=== PATIENT | male | born 1970 | race Two or more races ===

== ENCOUNTER → 2020-02-26 16:28 | Outpatient (CLI) | payer BC, SELFPAY ==
[2020-02-28 12:08] LABS: Covid-19 Nasal PCR Sendout Lex Not Detected
== END ==
PROVIDERS: PCP Physician Assistant; Visit Provider Physician Assistant
DX: Z03.818 Encounter for observation for suspected exposure to other biological agents ruled out (principal)
CPT/HCPCS: U0004

== ENCOUNTER → 2020-03-03 11:10 | Outpatient (CLI) | payer BC, SELFPAY ==
--- NOTE | 2020-03-03 11:16 | XR_ITS ---
PROCEDURE: XR CHEST PORTABLE CLINICAL HISTORY: COVID OUTPATIENT Fever and chills COMPARISON: No exams were available for comparison FINDINGS: The cardiomediastinal silhouette and pulmonary vascularity are within normal limits. There is a calcified right paratracheal lymph node The lungs are clear without infiltrates, suspicious nodules, or pleural effusions. No acute bony abnormalities. IMPRESSION: No acute findings. Dictated by: Kirk Angel MD 03/03/2020 13:07 Kirk Angel MD in [place] 03/03/2020 13:07
[2020-03-03 14:42] LABS: Coronavirus 19 IgG Antibody Negative (Negative); Coronavirus 19 IgM Antibody Negative (Negative)
[2020-03-05 08:39] LABS: Covid-19 Nasal PCR Sendout Lex DETECTED
== END ==
PROVIDERS: PCP Emergency Medicine; Visit Provider Physician Assistant
DX: Z20.828 Contact with and (suspected) exposure to other viral communicable diseases (principal); U07.1 COVID-19
CPT/HCPCS: 36415; 71045; 86328; U0004

== ENCOUNTER → 2020-03-23 11:28 | Outpatient (CLI) | payer BC, SELFPAY ==
[2020-03-24 11:17] LABS: H. pylori Breath Test Negative (Negative)
== END ==
PROVIDERS: Visit Provider Physician Assistant
DX: K21.9 Gastro-esophageal reflux disease without esophagitis (principal)
CPT/HCPCS: 83013

== ENCOUNTER → 2020-05-18 14:36 | Outpatient (CLI) | payer BC, SELFPAY ==
[2020-05-18 16:06] LABS: Alanine Aminotransferase 132 U/L (12-78); Albumin Level 4.9 g/dl (3.5-5.0); Albumin/Globulin Ratio 1.4 (1.1-1.8); Alkaline Phosphatase 44 U/L (38-126); Anion Gap 14.7 mEq/L (5-15); Aspartate Amino Transferase 77 U/L (17-59); Bilirubin,Total 0.7 mg/dl (0.2-1.3); Blood Urea Nitrogen 6 mg/dl (9-20); Calcium 10.1 mg/dl (8.4-10.2); Carbon Dioxide 29 mmol/L (22.0-30.0); Chloride 98 mmol/L (98-107); Chol/HDL Ratio 4.5 (1-3.5); Cholesterol 311 mg/dl (140-200); Estimated Glomerular Filt Rate 102 ml/min (>60); GFR (African American) 123 ML/MIN (>60); Globulin 3.6 g/dL (1.3-3.2); Glucose 99 mg/dl (74-100); HDL Cholesterol 69 mg/dl (40-60); Potassium 4.7 mmoL/L (3.5-5.1); Sodium 137 mmol/L (136-145); Total Protein,Serum 8.5 g/dl (6.3-8.2); Triglycerides 89 mg/dl (30-150); VLDL Cholesterol 18 mg/dL (0-40)
[2020-05-18 16:08] LABS: Basophils # 0.1 K/mm3 (0-0.2); Basophils % 1.1 % (0.1-2.0); Eosinophils # 0.5 K/mm3 (0.0-0.4); Eosinophils % 10.8 % (0.1-12.0); Hematocrit 41.8 % (42.0-52.0); Hemoglobin 14.2 g/dL (14.1-18.0); Lymphocytes # 1.9 K/mm3 (0.7-4.5); Lymphocytes % 37.8 % (10-50); Mean Corpuscular Hemoglobin 29.4 pg (27.0-31.2); Mean Corpuscular Volume 86.4 fl (80-94); Mean Platelet Volume 8.4 fl (7.4-10.4); Monocytes # 0.4 K/mm3 (0.1-1.0); Monocytes % 8.4 % (1.7-9.3); Neutrophils # 2.1 K/mm3 (1.8-7.8); Neutrophils % 41.9 % (37.0-80.0); Platelet Count 277 K/mm3 (142-424); Red Blood Count 4.84 M/mm3 (4.60-6.20); Red Cell Distribution Width 13.4 % (11.5-17.5)
[2020-05-18 16:17] LABS: Direct LDL Cholesterol 218.41 mg/dL (100-129)
[2020-05-18 16:22] LABS: Free T4 (Free Thyroxine) 1.29 ng/dl (0.78-2.19)
[2020-05-18 16:23] LABS: 25-OH Vitamin D, Total 27.4 ng/mL (30-100)
[2020-05-18 16:36] LABS: Prostate Specific Ag Screen 0.7 ng/ml (0.0-4.0)
[2020-05-20 11:16] LABS: Hep A Ab, IgM Negative (Negative); Hepatitis B Core Antibody IgM Negative (Negative); Hepatitis B Surface Antigen Negative (Negative)
[2020-05-20 14:58] LABS: Hepatitis C Antibody <0.1 s/co ratio (0.0-0.9); Testosterone,Total 318 ng/dL (264-916)
== END ==
PROVIDERS: Visit Provider Physician Assistant
DX: E29.1 Testicular hypofunction (principal); E55.9 Vitamin D deficiency, unspecified; E78.5 Hyperlipidemia, unspecified; M19.90 Unspecified osteoarthritis, unspecified site; R74.8 Abnormal levels of other serum enzymes; R89.9 Unspecified abnormal finding in specimens from other organs, systems and tissues
CPT/HCPCS: 80053; 80061; 80074; 82306; 84403; 84439; 84443; 85025; G0103

== ENCOUNTER → 2020-12-15 18:14 | Outpatient (CLI) | payer BC, SELFPAY ==
[2020-12-15 19:07] LABS: Basophils # 0.1 K/mm3 (0-0.2); Basophils % 1.1 % (0.1-2.0); Eosinophils # 0.5 K/mm3 (0.0-0.4); Eosinophils % 7.2 % (0.1-12.0); Hemoglobin 14.5 g/dL (14.1-18.0); Lymphocytes # 2.5 K/mm3 (0.7-4.5); Lymphocytes % 34.5 % (10-50); Mean Corpuscular HGB Conc 33.6 g/dL (31.8-35.4); Mean Corpuscular Hemoglobin 29.5 pg (27.0-31.2); Mean Corpuscular Volume 87.7 fl (80-94); Mean Platelet Volume 9.2 fl (7.4-10.4); Monocytes # 0.5 K/mm3 (0.1-1.0); Monocytes % 6.9 % (1.7-9.3); Neutrophils # 3.6 K/mm3 (1.8-7.8); Neutrophils % 50.3 % (37.0-80.0); Platelet Count 270 K/mm3 (142-424); Red Cell Distribution Width 13.6 % (11.5-17.5); White Blood Count 7.1 K/mm3 (4.8-10.8)
[2020-12-15 19:11] LABS: Alanine Aminotransferase 125 U/L (12-78); Albumin Level 4.7 g/dl (3.5-5.0); Albumin/Globulin Ratio 1.4 (1.1-1.8); Alkaline Phosphatase 45 U/L (38-126); Anion Gap 16.2 mEq/L (5-15); Aspartate Amino Transferase 75 U/L (17-59); Bilirubin,Total 0.8 mg/dl (0.2-1.3); Blood Urea Nitrogen 12 mg/dl (9-20); Calcium 9.8 mg/dl (8.4-10.2); Carbon Dioxide 25 mmol/L (22.0-30.0); Chloride 98 mmol/L (98-107); Estimated Glomerular Filt Rate 118 ml/min (>60); GFR (African American) 143 ML/MIN (>60); Globulin 3.3 g/dL (1.3-3.2); Glucose 96 mg/dl (74-100); HDL Cholesterol 68 mg/dl (40-60); Potassium 4.2 mmoL/L (3.5-5.1); Sodium 135 mmol/L (136-145); Triglycerides 129 mg/dl (30-150); VLDL Cholesterol 26 mg/dL (0-40)
[2020-12-15 19:23] LABS: Direct LDL Cholesterol 241.04 mg/dL (100-129)
[2020-12-15 19:28] LABS: Chol/HDL Ratio 5.3 (1-3.5); Cholesterol 357 mg/dl (140-200)
[2020-12-15 19:29] LABS: 25-OH Vitamin D, Total 42.5 ng/mL (30-100)
[2020-12-15 19:42] LABS: Thyroid Stimulating Hormone 1.23 uIU/mL (0.465-4.68)
== END ==
PROVIDERS: Visit Provider Physician Assistant
DX: I10 Essential (primary) hypertension (principal); E66.3 Overweight; Z68.30 Body mass index [BMI] 30.0-30.9, adult; Z87.891 Personal history of nicotine dependence
CPT/HCPCS: 80053; 80061; 82306; 84443; 85025

== ENCOUNTER → 2021-05-18 15:55 | Outpatient (CLI) | payer BC, SELFPAY | PROVIDERS: Visit Provider Internal Medicine Gastroenterology | DX: Z01.812 Encounter for preprocedural laboratory examination (principal); Z11.52 Encounter for screening for COVID-19; R10.13 Epigastric pain | CPT/HCPCS: C9803; U0003; U0005 ==

== ENCOUNTER 2021-05-20 08:45 | Day surgery (SDC) | payer BC, SELFPAY ==
[2021-05-17 12:38] VITALS: BMI 30.6
[2021-05-20] VITALS (7 sets, daily range): BP systolic 120–136; BP diastolic 80–91; PULSE 65–83; RESP 16–18; TEMP 36.3–36.8; O2SAT 95–99
--- NOTE | 2021-05-20 09:36 | P.PN_ITS ---
[facility] Anesthesia Checklist - Patient Identification Patient Identification: Arm Band - Structural Data Admitted From: Home Planned Operative Procedure/s: egd Consent for Planned Operative Procedure(s) Verified: Yes Verified Documents: Surgical Consent, History and Physical - NPO Status Verified Time NPO: 00:00 - Additional verifications Anesthesia Reactions: No - Airway Assessment C-Spine Mobility Assessed: Yes (mp2) TMJ Mobility Assessed: Yes Dentition: Good Dentition - Neurological Assessment Level of Consciousness: Awake, Alert - Anesthesia Plan Anesthesia Risk discussed: Yes Anesthesia Plan: Verified ASA Class: II Anesthesia Type: MAC [facility] History I have reviewed the patient's past medical history: Yes Medical History: Reports:: Hyperlipidemia, Hypertension Denies:: Cancer, Diabetes Mellitus Type 1, Diabetes Mellitus Type 2, Internal Pacemaker, MRSA, Seizures *Have you ever received a pneumonia vaccine?: No *Have you received a flu vaccine this season?: No Anesthesia experience/problems:: nac Laterality Cases: Right: Arthroscopy Knee Other Surgeries: No: Pacemaker Amputation: No - *Social History Last grade of school completed: High school graduate Smoking Status: Former smoker Tobacco Type: e-cigarettes Alcohol Intake: never Alcohol Intake Frequency:: 3 or more drinks per day Substance Use Type: denies use *Occupational Status:: employed Housing: house Household Members: spouse *Travel in the last 8 weeks: None Family Hx:: Diabetes, Heart Attack
--- NOTE | 2021-05-20 09:50 | HMH.SCOPE ---
- Procedure: Date: 05/20/21 Patient Date of :: 1970 Procedure Performed:: EGD & biopsies Indications:: Dyspepsia, bloating Performing Provider:: Umesh Edwards MD Referring Provider:: Lachelle DUGAN Sedation:: Propofol Procedure:: The gastroscope was gently passed through the incisoral orifice into the oral cavity and under direct visualization the esophagus was intubated. The endoscope was passed down the esophagus, through the stomach, and into the duodenum. Color, texture, mucosa, and anatomy of the esophagus, stomach, and duodenum were carefully examined with the scope. Findings:: Oropharynx: normal Esophagus: normal EG Junction: intact at 40 cm, no evidence of hiatus hernia Cardia: normal Fundus: normal Body: normal, random biopsies obtained for evaluation of h.pylori Antrum: normal Duodenal bulb: normal Duodenum (second and third portion): normal Impression: Overall normal EGD No evidence of ulcer disease or hiatus hernia noted. Specimens:: Gastric samples Recommendations:: Symptomatic therapy directed at IBS suggested Complications:: None Estimated blood obtained (mL): 0
== END 2021-05-20 10:45 | disposition home or self-care (01) ==
LOC: OUTP 08:47
PROVIDERS: PCP Physician Assistant; Visit Provider Internal Medicine Gastroenterology
PROC: 0DJ08ZZ Inspection of Upper Intestinal Tract, Via Natural or Artificial Opening Endoscopic (ICD-10-PCS; CPT 43235; principal; 2021-05-20 09:00)
DX: R10.13 Epigastric pain (principal); R14.0 Abdominal distension (gaseous); E78.5 Hyperlipidemia, unspecified; I10 Essential (primary) hypertension; Z87.891 Personal history of nicotine dependence; Z83.3 Family history of diabetes mellitus; Z82.3 Family history of stroke
CPT/HCPCS: 43239

== ENCOUNTER → 2021-06-03 07:32 | Outpatient (CLI) | payer BC, SELFPAY ==
--- NOTE | 2021-06-03 07:32 | US_ITS ---
FINAL REPORT CLINICAL HISTORY: nausea, epigastric pain FINDINGS: Sonographic images of the right upper quadrant were obtained. The pancreas is partially obscured but appears normal. The liver is increased echogenicity consistent with fatty infiltration. The gallbladder contains a small amount of sludge without evidence of gallstones.There is no evidence of biliary ductal dilatation.The common duct measures 3 mm. Limited images of the right kidney are unremarkable. IMPRESSION: Small amount of sludge within the gallbladder without evidence of gallstones. Fatty infiltrated liver. Reviewed, Interpreted and Dictated by Javier Jacksno III, MD Transcribed by Angeline Kirk Authenticated by Javier Jackson III, MD on 06/03/2021 09:18:41 AM [facility]
== END ==
PROVIDERS: PCP Physician Assistant; Visit Provider Physician Assistant
DX: R10.13 Epigastric pain (principal); R11.0 Nausea
CPT/HCPCS: 76705

== ENCOUNTER → 2021-06-16 07:37 | Outpatient (CLI) | payer BC, SELFPAY ==
--- NOTE | 2021-06-16 07:37 | CT_ITS ---
FINAL REPORT TECHNIQUE: Axial CT images of the abdomen were obtained without contrast. Coronal reformatted images were also obtained.This study was performed with techniques to keep radiation doses as low as reasonably achievable (ALARA). Individualized dose reduction techniques using automated exposure control or adjustment of mA and/or kV according to the patient''s size were employed. CLINICAL HISTORY: nausea, epigastric pain, bloating for 2 years FINDINGS: The lung bases are clear. There is fatty infiltration of the liver without evidence of a mass. The gallbladder appears normal without evidence of gallstones. There is no evidence of biliary ductal dilatation. The pancreas appears normal. The spleen size is within normal limits. There is a less than 3 mm nonobstructing right renal stone. There is no evidence of adenopathy. No abnormal fluid collection is seen. No localized inflammatory processes identified. IMPRESSION: Fatty infiltration of the liver. Less than 3 mm nonobstructing right renal stone. Reviewed, Interpreted and Dictated by Javier Jackson III, MD Transcribed by Angeline Kirk Authenticated by Javier Jackson III, MD on 06/16/2021 12:25:58 PM [facility]
== END ==
PROVIDERS: PCP Physician Assistant; Visit Provider Physician Assistant
DX: R10.13 Epigastric pain (principal); R11.0 Nausea
CPT/HCPCS: 74150

== ENCOUNTER → 2021-06-17 10:25 | Outpatient (CLI) | payer BC, SELFPAY ==
--- NOTE | 2021-06-17 10:25 | NM_ITS ---
FINAL REPORT CLINICAL HISTORY: Gallbladder sludge with pain u/s neg for gb stones 10:50 am 7.83 mci tc choletec injected into lt ant pt drank ensure no pain after drinking ensure FINDINGS: Sequential anterior projection images of the abdomen were obtained after the intravenous injection of 7.83 mCi technetium 99m Choletec. There is normal uptake of radiotracer by the liver. The bile ducts, gallbladder and bowel are visualized by 60 minutes. After 1 hour, Ensure was ingested for calculation of gallbladder ejection fraction. The gallbladder ejection fraction is 52%, which is within normal limits. IMPRESSION: No evidence of cystic duct or bile duct obstruction. Normal gallbladder ejection fraction of 52%. Reviewed, Interpreted and Dictated by Javier Jackson III, MD Transcribed by Juan M Boykin Authenticated by Javier Jackson III, MD on 06/17/2021 03:11:[address] [facility]
== END ==
PROVIDERS: PCP Physician Assistant; Visit Provider Physician Assistant
DX: K82.8 Other specified diseases of gallbladder (principal)
CPT/HCPCS: 78227; A9537

== ENCOUNTER → 2022-06-02 09:39 | Outpatient (CLI) | payer BC, SELFPAY ==
[2022-06-02 10:16] LABS: Basophils # 0.1 K/mm3 (0-0.2); Basophils % 1.3 % (0.1-2.0); Eosinophils # 0.4 K/mm3 (0.0-0.4); Eosinophils % 8.2 % (0.1-12.0); Hematocrit 47.3 % (42.0-52.0); Hemoglobin 15.5 g/dL (14.1-18.0); Lymphocytes # 1.4 K/mm3 (0.7-4.5); Lymphocytes % 28.5 % (10-50); Mean Corpuscular HGB Conc 32.7 g/dL (31.8-35.4); Mean Corpuscular Hemoglobin 29.2 pg (27.0-31.2); Mean Corpuscular Volume 89.3 fl (80-94); Mean Platelet Volume 8.1 fl (7.4-10.4); Monocytes # 0.5 K/mm3 (0.1-1.0); Monocytes % 10.5 % (1.7-9.3); Neutrophils # 2.5 K/mm3 (1.8-7.8); Neutrophils % 51.4 % (37.0-80.0); Platelet Count 279 K/mm3 (142-424); Red Blood Count 5.29 M/mm3 (4.60-6.20); Red Cell Distribution Width 13.1 % (11.5-17.5); White Blood Count 4.9 K/mm3 (4.8-10.8)
[2022-06-02 10:33] LABS: Chloride 94 mmol/L (98-107); Potassium 4.6 mmoL/L (3.5-5.1); Sodium 133 mmol/L (136-145)
[2022-06-02 10:35] LABS: Alanine Aminotransferase 371 U/L (12-78); Albumin Level 5.2 g/dl (3.5-5.0); Albumin/Globulin Ratio 1.5 (1.1-1.8); Alkaline Phosphatase 59 U/L (38-126); Aspartate Amino Transferase 197 U/L (17-59); Blood Urea Nitrogen 8 mg/dl (9-20); Carbon Dioxide 30 mmol/L (22.0-30.0); Estimated Glomerular Filt Rate 118 ml/min (>60); GFR (African American) 143 ML/MIN (>60); Globulin 3.4 g/dL (1.3-3.2); Total Protein,Serum 8.6 g/dl (6.3-8.2)
[2022-06-02 10:36] LABS: Anion Gap 13.6 mEq/L (5-15); Calcium 9.7 mg/dl (8.4-10.2); Chol/HDL Ratio 4.9 (1-3.5); Cholesterol 311 mg/dl (140-200); Glucose 101 mg/dl (74-100); HDL Cholesterol 64 mg/dl (40-60); Triglycerides 99 mg/dl (30-150); VLDL Cholesterol 20 mg/dL (0-40)
[2022-06-02 10:47] LABS: Direct LDL Cholesterol 210.36 mg/dL (100-129)
[2022-06-02 11:06] LABS: Thyroid Stimulating Hormone 1.21 uIU/mL (0.465-4.68)
[2022-06-02 11:07] LABS: 25-OH Vitamin D, Total 43.4 ng/mL (30-100)
[2022-06-02 11:21] LABS: Prostate Specific Ag Screen 0.7 ng/ml (0.0-4.0)
== END ==
PROVIDERS: PCP Physician Assistant; Visit Provider Physician Assistant
DX: I10 Essential (primary) hypertension (principal); E78.5 Hyperlipidemia, unspecified; R94.5 Abnormal results of liver function studies; E66.9 Obesity, unspecified; Z68.32 Body mass index [BMI] 32.0-32.9, adult; Z12.5 Encounter for screening for malignant neoplasm of prostate
CPT/HCPCS: 36415; 80053; 80061; 82306; 84443; 85025; G0103

== ENCOUNTER 2023-03-30 11:28 | Outpatient (CLI) | payer BC, SELFPAY ==
--- NOTE | 2023-03-30 11:37 | XR_ITS ---
FINAL REPORT CLINICAL HISTORY: fever COMPARISON: 03/03/2020 FINDINGS: Two views of the chest were obtained. The heart size and pulmonary vascularity are within normal limits. The mediastinum is normal. No acute pulmonary abnormality is identified. There is no pneumothorax. The bony thorax is intact. IMPRESSION: No active cardiopulmonary disease. Reviewed, Interpreted and Dictated by Javier Jackson III, MD Transcribed by Linda Castillo Authenticated and [facility]
[2023-03-30 14:20] LABS: Coronavirus 19, PCR Not Detected (NotDetected); Influenza A, PCR Not Detected (NotDetected); Influenza B, PCR Not Detected (NotDetected)
== END 2023-03-30 23:59 ==
PROVIDERS: PCP Physician Assistant; Visit Provider Student in an Organized Health Care Education/Training Program
DX: R05.9 Cough, unspecified (principal); R50.9 Fever, unspecified
CPT/HCPCS: 71046; 87636

== ENCOUNTER 2023-05-09 06:27 | Outpatient (CLI) | payer BC, SELFPAY ==
[2023-05-09 07:36] LABS: Basophils % 0.8 % (0.1-2.0); Eosinophils # 0.5 K/mm3 (0.0-0.4); Eosinophils % 9.7 % (0.1-12.0); Hematocrit 44.6 % (42.0-52.0); Hemoglobin 15.1 g/dL (14.1-18.0); Lymphocytes # 1.6 K/mm3 (0.7-4.5); Lymphocytes % 31.8 % (10-50); Mean Corpuscular HGB Conc 33.9 g/dL (31.8-35.4); Mean Corpuscular Hemoglobin 30.5 pg (27.0-31.2); Mean Platelet Volume 8.2 fl (7.4-10.4); Monocytes # 0.5 K/mm3 (0.1-1.0); Monocytes % 10.5 % (1.7-9.3); Neutrophils # 2.3 K/mm3 (1.8-7.8); Neutrophils % 47.2 % (37.0-80.0); Platelet Count 228 K/mm3 (142-424); Red Blood Count 4.96 M/mm3 (4.60-6.20); Red Cell Distribution Width 13.1 % (11.5-17.5); White Blood Count 4.9 K/mm3 (4.8-10.8)
[2023-05-09 07:46] LABS: Chloride 90 mmol/L (98-107); Sodium 129 mmol/L (136-145)
[2023-05-09 07:48] LABS: Blood Urea Nitrogen 9 mg/dl (9-20); Estimated Glomerular Filt Rate 118 ml/min (>60); GFR (African American) 142 ML/MIN (>60)
[2023-05-09 07:49] LABS: Alanine Aminotransferase 178 U/L (12-78); Albumin Level 4.8 g/dl (3.5-5.0); Albumin/Globulin Ratio 1.5 (1.1-1.8); Alkaline Phosphatase 44 U/L (38-126); Aspartate Amino Transferase 107 U/L (17-59); Bilirubin,Total 1.8 mg/dl (0.2-1.3); Calcium 9.7 mg/dl (8.4-10.2); Carbon Dioxide 34 mmol/L (22.0-30.0); Chol/HDL Ratio 4.9 (1-3.5); Cholesterol 307 mg/dl (140-200); Globulin 3.2 g/dL (1.3-3.2); Glucose 101 mg/dl (74-100); HDL Cholesterol 63 mg/dl (40-60); Iron 277 ug/dL (49-181); Triglycerides 132 mg/dl (30-150); VLDL Cholesterol 26 mg/dL (0-40)
[2023-05-09 07:52] LABS: Hemoglobin A1C 5.1 % (4.0-6.0)
[2023-05-09 08:06] LABS: Direct LDL Cholesterol 187.95 mg/dL (100-129)
[2023-05-09 08:20] LABS: Thyroid Stimulating Hormone 2.42 uIU/mL (0.465-4.68)
[2023-05-09 08:24] LABS: Ferritin 283 ng/ml (17.9-464)
[2023-05-09 08:43] LABS: 25-OH Vitamin D, Total 50.6 ng/mL (30-100)
[2023-05-09 09:59] LABS: Vitamin B12 932 pg/mL (239-931)
[2023-05-09 12:03] LABS: Total Iron Binding Capacity 285 ug/dL (261-462)
[2023-05-10 04:09] LABS: Testosterone,Total 329 ng/dL (264-916)
[2023-05-14 09:48] LABS: Fibrosis Score 0.62; Fibrosis Stage F3
[2023-05-14 09:49] LABS: Alpha 2-Macroglobulins, Qn 243; NASH Grade N3; Steatosis Grade S2-S3; Steatosis Score 0.71
[2023-05-14 09:50] LABS: Apolipoprotein A-1 171; Bilirubin, Total 1.2; GGT 136; Haptoglobin 95
[2023-05-14 09:51] LABS: ALT (SGPT) P5P 199; AST (SGOT) P5P 91; Cholesterol, Total 317
[2023-05-14 09:52] LABS: Glucose 104; Triglycerides 132
== END 2023-05-09 23:59 ==
LOC: LAB 06:28
PROVIDERS: PCP Physician Assistant; Visit Provider Physician Assistant
DX: I10 Essential (primary) hypertension (principal); R53.83 Other fatigue; R74.8 Abnormal levels of other serum enzymes; E29.1 Testicular hypofunction; E55.9 Vitamin D deficiency, unspecified
CPT/HCPCS: 36415; 80053; 80061; 82306; 82607; 82728; 83036; 83540; 83550; 84403; 84443; 85025

== ENCOUNTER 2023-05-26 09:19 | Outpatient (CLI) | payer BC, SELFPAY ==
[2023-05-26 10:26] LABS: Alanine Aminotransferase 183 U/L (12-78); Albumin Level 4.8 g/dl (3.5-5.0); Albumin/Globulin Ratio 1.7 (1.1-1.8); Alkaline Phosphatase 47 U/L (38-126); Anion Gap 13.3 mEq/L (5-15); Aspartate Amino Transferase 114 U/L (17-59); Bilirubin,Total 0.9 mg/dl (0.2-1.3); Blood Urea Nitrogen 12 mg/dl (9-20); Calcium 9.8 mg/dl (8.4-10.2); Carbon Dioxide 30 mmol/L (22.0-30.0); Chloride 96 mmol/L (98-107); Estimated Glomerular Filt Rate 118 ml/min (>60); GFR (African American) 142 ML/MIN (>60); Globulin 2.9 g/dL (1.3-3.2); Glucose 105 mg/dl (74-100); Potassium 5.3 mmoL/L (3.5-5.1); Sodium 134 mmol/L (136-145); Total Protein,Serum 7.7 g/dl (6.3-8.2)
[2023-05-26 11:17] LABS: Iron 158 ug/dL (49-181)
[2023-05-26 11:28] LABS: Total Iron Binding Capacity 314 ug/dL (261-462)
[2023-05-26 11:53] LABS: Ferritin 173 ng/ml (17.9-464)
== END 2023-05-26 23:59 ==
LOC: LAB 09:19
PROVIDERS: PCP Physician Assistant; Visit Provider Internal Medicine Medical Oncology
DX: R79.0 Abnormal level of blood mineral (principal)
CPT/HCPCS: 36415; 80053; 82728; 83540; 83550

== ENCOUNTER 2023-06-06 08:14 | Outpatient (CLI) | payer BC, SELFPAY ==
--- NOTE | 2023-06-06 08:17 | US_ITS ---
FINAL REPORT CLINICAL HISTORY: FATTY LIVER W/ABD PAIN COMPARISON: 06/03/2021 FINDINGS: Sonographic images of the right upper quadrant were obtained. The pancreas is partially obscured. Fatty infiltration of the liver is once again noted, unchanged since the prior exam of May 2021. The gallbladder appears normal without evidence of gallstones.There is no evidence of biliary ductal dilatation.The common duct measures 3 mm. Limited images of the right kidney are unremarkable. The overall appearance is similar to the prior exam. IMPRESSION: Fatty infiltration of the liver without evidence of biliary ductal dilatation. Pancreas is partially obscured by overlying bowel gas. Reviewed, Interpreted and Dictated by Javier Jackson III, MD Transcribed by Mary Lou Candelario Authenticated and [facility]
== END 2023-06-06 23:59 ==
LOC: RAD 08:14
PROVIDERS: PCP Physician Assistant; Visit Provider Internal Medicine Medical Oncology
DX: K76.0 Fatty (change of) liver, not elsewhere classified (principal); R10.9 Unspecified abdominal pain
CPT/HCPCS: 76705